=== PATIENT | male | born 1970 | race American Indian/Alaskan Native ===

== ENCOUNTER 2018-06-07 14:12 | Emergency (ER) | payer OTHER ==
[2018-06-07] MEDS ORDERED: NACL 0.9% 1000 ML 1,000 ML IV ONE (15:12)
--- NOTE | 2018-06-07 15:18 | XRay Report ---
ROUTINE CHEST, TWO VIEWS: HISTORY: Chest pain, syncope. Trace right pleural effusion is identified. The lungs are clear otherwise. Normal heart and mediastinal structures. Normal bony thorax. IMPRESSION: Trace right pleural effusion. Pleurisy?
[2018-06-07 15:19] LABS: Basophils % (Auto) 0.5 % (0.0-1.8); Eosinophils % (Auto) 0.3 % (0.0-4.3); Hematocrit 34.5 % (35.5-45.6); Hemoglobin 11.3 gm/dl (11.8-15.2); Lymphocytes # (Auto) 0.7 K/mm3 (1.2-5.4); Lymphocytes % (Auto) 13.5 % (13.4-35.0); Mean Corpuscular HGB Conc 33 % (32-34); Mean Corpuscular Hemoglobin 27 pg (28-32); Mean Corpuscular Volume 81 fl (84-94); Monocytes # (Auto) 0.7 K/mm3 (0.0-0.8); Red Blood Count 4.26 M/mm3 (3.65-5.03); Red Cell Distribution Width 14.6 % (13.2-15.2)
[2018-06-07 15:29] LABS: INR 1.09 (0.87-1.13)
[2018-06-07 15:30] LABS: Partial Thromboplastin Time 36.3 Sec. (24.2-36.6)
[2018-06-07 15:37] LABS: Alanine Aminotransferase 20 units/L (7-56); Albumin 3.9 g/dL (3.9-5); BUN/Creatinine Ratio 13; Blood Urea Nitrogen 12 mg/dL (9-20); Calcium 7.9 mg/dL (8.4-10.2); Hemolysis Index 2
[2018-06-07 15:57] LABS: Bilirubin,Direct < 0.2 mg/dL (0-0.2)
[2018-06-07 16:05] LABS: Platelet Count 93 K/mm3 (140-440)
--- NOTE | 2018-06-07 16:30 | Emergency Department Report ---
ED Syncope HPI - General Chief Complaint: Syncope Stated Complaint: NUMBNESS IN ARMS Time Seen by Provider: 06/07/18 14:27 - History of Present Illness Initial Comments: 47-year-old male presents to ED with complaint of syncope. Patient reported syncopal episodes both last night and this morning. Patient states did not hit his head, states guard caught him as he was falling. Patient denies nausea, vomiting, fever, diarrhea. Reports history of HIV, not currently on any antiviral treatment. Patient reports sharp chest pain that has been ongoing for approximately one year. Patient denies leg pain or swelling. Reports has had a dry cough. Timing/Prior Episodes: no prior history Precipitating Factors: Positive: unknown Context: standing Loss of Consciousness: unsure Current Symptoms: back to normal, chest pain, lightheadedness. denies: headache , injury, nausea - Related Data Allergies/Adverse Reactions: Allergies No Known Allergies Allergy (Unverified 06/07/18 16:04) Home Medications: Ambulatory Orders Azithromycin [Zithromax] 250 mg PO DAILY #6 tablet 06/07/18 Benzonatate [Tessalon Perles] 100 mg PO Q8HR PRN #20 capsule 06/07/18 Naproxen [Naprosyn] 500 mg PO BID PRN #20 tablet 06/07/18 ED Review of Systems ROS: Stated complaint: NUMBNESS IN ARMS Other details as noted in HPI Comment: All other systems reviewed and negative Constitutional: denies: fever Respiratory: cough. denies: shortness of breath Cardiovascular: chest pain Gastrointestinal: denies: abdominal pain, nausea, vomiting, diarrhea Neurological: paresthesias. denies: headache ED Past Medical Hx - Past Medical History Previous Medical History?: Yes Hx HIV: Yes - Surgical History Past Surgical History?: No - Social History Smoking Status: Current Every Day Smoker - Medications Home Medications: Home Medications Medication Instructions Recorded Confirmed Last Taken Type Azithromycin [Zithromax] 250 mg PO DAILY #6 tablet 06/07/18 Unknown Rx Benzonatate [Tessalon Perles] 100 mg PO Q8HR PRN #20 capsule 06/07/18 Unknown Rx Naproxen [Naprosyn] 500 mg PO BID PRN #20 tablet 06/07/18 Unknown Rx ED Physical Exam - General Limitations: No Limitations ED Course Vital Signs 06/07/18 14:16 Temperature 98.3 F Pulse Rate 98 H Respiratory 18 Rate Blood Pressure 106/64 O2 Sat by Pulse 100 Oximetry ED Medical Decision Making - Lab Data Result diagrams: 06/07/18 14:56 06/07/18 14:56 - EKG Data -: EKG Interpreted by Me EKG shows normal: sinus rhythm, axis, intervals, QRS complexes, ST-T waves Rate: normal - EKG Data Interpretation: no acute changes - Radiology Data Radiology results: report reviewed, image reviewed FINAL REPORT EXAM: CT ANGIO CHEST HISTORY: chest pain, syncope TECHNIQUE: CT examination of the chest with IV contrast CT angiographic 2D and thick slab 3D image post-processing PRIORS: None. FINDINGS: Normal cardiac size without pericardial effusion. Intact normal caliber thoracic aorta. Normal-appearing visible esophageal segments. There is nonspecific soft tissue prominence in the sub-carinal and right hilar regions. This may reflect neoplastic, inflammatory, or infectious adenopathy. The visualized pulmonary arteries are diffusely patent bilaterally. There is no filling defect to suggest PE. A nonspecific, smoothly marginated, low density, simple appearing left renal lesion is statistically most likely a cyst. No evidence of acute fracture. Bilateral slight pulmonary emphysema with upper lobe predominance, more on the right. Scattered bilateral apical pulmonary scarring with pneumatoceles. No pneumothorax, pleural effusion, or focal pulmonary consolidation. No lung mass or pulmonary nodule. IMPRESSION: Nonspecific soft tissue prominence in the subcarinal and right hilar regions may be reactive, inflammatory, or infectious adenopathy. Differential includes neoplasm Bilateral slight pulmonary emphysema with upper lobe predominance, more on the right No CT evidence of PE Transcribed By: BAL Dictated By: KAIA TERAN MD Electronically Authenticated By: KAIA TERAN MD Signed Date/Time: 06/07/18 8721 - Medical Decision Making 47-year-old male s/p syncopal episode. Pt found to be orthostatic so IV fluids given. EKG normal troponin and normal, no signs of ischemia. Patient does have thrombocytopenia, with platelet count 93,000 on CBC. Likely due to the patient's HIV as patient is not on any antiretrovirals. Patient denies any episodes of bleeding. D-dimer was elevated, so CTA ordered. CT negative for PE , however, does show reactive, inflammatory, or infectious adenopathy. Will prescribe abx, since pt did report cough. Advise outpt follow- up. Pt remains comfortable, nontoxic-appearing. Will d/c at this time. - Differential Diagnosis dehydration, arrythmia, PE Critical care attestation.: If time is entered above; I have spent that time in minutes in the direct care of this critically ill patient, excluding procedure time. ED Disposition Clinical Impression: Syncope, Orthostasis, Dehydration, Mediastinal adenopathy, Thrombocytopenia Disposition: TO HOME OR SELFCARE Is pt being admited?: No Condition: Stable Instructions: Syncope (ED), Dehydration (ED) Additional Instructions: You will need a repeat CT scan of your chest in 3-6 months to evaluate for resolution of enlarged lymph nodes that was seen today. You will be getting antibiotics and anti-inflammatory medications today in case the cause is inflammation or infectious. Prescriptions: Azithromycin [Zithromax] 250 mg PO DAILY #6 tablet Benzonatate [Tessalon Perles] 100 mg PO Q8HR PRN #20 capsule PRN Reason: Cough Naproxen [Naprosyn] 500 mg PO BID PRN #20 tablet PRN Reason: pain Referrals: PRIMARY CARE, [Primary Care Provider] - 3-5 Days Time of Disposition: 17:16
--- NOTE | 2018-06-07 17:06 | Cat Scan Report ---
FINAL REPORT EXAM: CT ANGIO CHEST HISTORY: chest pain, syncope TECHNIQUE: CT examination of the chest with IV contrast CT angiographic 2D and thick slab 3D image post-processing PRIORS: None. FINDINGS: Normal cardiac size without pericardial effusion. Intact normal caliber thoracic aorta. Normal-appearing visible esophageal segments. There is nonspecific soft tissue prominence in the sub-carinal and right hilar regions. This may reflect neoplastic, inflammatory, or infectious adenopathy. The visualized pulmonary arteries are diffusely patent bilaterally. There is no filling defect to suggest PE. A nonspecific, smoothly marginated, low density, simple appearing left renal lesion is statistically most likely a cyst. No evidence of acute fracture. Bilateral slight pulmonary emphysema with upper lobe predominance, more on the right. Scattered bilateral apical pulmonary scarring with pneumatoceles. No pneumothorax, pleural effusion, or focal pulmonary consolidation. No lung mass or pulmonary nodule. IMPRESSION: Nonspecific soft tissue prominence in the subcarinal and right hilar regions may be reactive, inflammatory, or infectious adenopathy. Differential includes neoplasm Bilateral slight pulmonary emphysema with upper lobe predominance, more on the right No CT evidence of PE
[2018-06-07 17:09] LABS: Bilirubin,Urine NEG (Negative); Blood,Urine NEG (Negative); Color,Urine Yellow (Yellow)
[2018-06-07 17:18] LABS: Amphetamine Screen,Urine PRESUMPTIVE NEGATIVE; Benzodiazepines Screen,Urine PRESUMPTIVE NEGATIVE; Cannabinoid Screen,Urine PRESUMPTIVE NEGATIVE; Cocaine Screen,Urine PRESUMPTIVE NEGATIVE; Methadone Screen,Urine PRESUMPTIVE NEGATIVE; Opiate Screen,Urine PRESUMPTIVE NEGATIVE
[2018-06-07 17:40] VITALS: BP 130/74
== END 2018-06-07 18:09 | disposition home or self-care (01) ==
LOC: ED 14:12
DX: E86.0 Dehydration (principal); R59.0 Localized enlarged lymph nodes; D69.6 Thrombocytopenia, unspecified; F17.200 Nicotine dependence, unspecified, uncomplicated; Z79.899 Other long term (current) drug therapy
CPT/HCPCS: 36415; 71046; 71275; 80048; 80074; 80307; 81001; 84484; 85025; 85379; 85610; 85730; 93005; 93010; 96360; 96361; 99285; J7030; Q9967